=== PATIENT | female | born 1955 | race Caucasian/White ===

== ENCOUNTER 2024-08-18 11:04 | Outpatient (AMB) | payer OTHER, SELFPAY ==
--- NOTE | 2024-08-18 11:11 | MHC.PC.OV ---
Vital Signs 08/18/24 11:12 Height 5 ft 3 in Weight 233 lb BMI 41.3 BP 112/86 Blood Pressure Location Lt brachial Position Sitting Respiration 12 Pulse 91 Pulse Source Pulse Oximeter Pulse Oximetry (%) 92 Oxygen Delivery Method Room Air Intake Visit Reasons: pratik from [facility]/fatigue/difficult issues Intake Note: Patient is here to transfer care from [facility] [place] to [facility] [place] [facility]. Patient states she has concerns but she will speak to her doctor. 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 Accompanied by: Self / Same As Patient Allergies lisinopril Allergy (Severe, Verified 08/18/24 11:28) Cough sacubitril [From Entresto] Allergy (Severe, Verified 08/18/24 11:28) Cough Sulfa (Sulfonamide Antibiotics) Allergy (Severe, Verified 08/18/24 11:28) Hives valsartan [From Entresto] Allergy (Severe, Verified 08/18/24 11:28) Cough Tobacco use date assessed: 08/18/24 Fall risk assessment: 2 + Falls in past year Last assessed Fall Risk: 08/18/24 Dental Screening Dental Screen Date: 08/18/24 Did you have a dental visit in the last 12 months?: Yes Did you have a dental problem in the last 6 months where you did not have access to dental care?: Yes Was dental information given to patient?: Patient has dentist HPI HPI Comments History of Present Illness Details The patient is a 68 year old female with apast medical history of hypertension, hypertension, CAD s/p CABG, TORSTEN x 2,HFpEF35%, CVA, DM, JANUSZ presenting for follow up CV: Follows with [facility] heart failure clinic, cardiology. Has had chronic fatigue following CABG. Had late sternal wound infection. Follow up echo 40-50% and prolonged antibiotics. On entresto. Tells me she recently was admitted for an infection of her neck/face. Feels that recently her left neck/face has felt more swollen. says one of her medications was decreased. Depression & Anxiety: Followed with [facility] in the past. then saw IBH at [facility]. Tells me meds got changed in the past few months IDDM: On basaglar 40u daily, humalog 10u TID. Urologic: Has incontinence. Stress like coughing, standing but also without doing these things. She has urgency at time. She has had a few episodes of stool incontinence in the psast. She was referred to urogynecology last year-missed the appointment. Tried oxybutynin but was not effective ROS see HPI PHYSICAL EXAM: GENERAL: Alert and oriented x 3. NAD EYES: EOMI. Anicteric. HENT: Moist mucous membranes. Bilateral submandibular fullness, no redness or warmth appreciated LUNGS: Clear to auscultation bilaterally. CARDIOVASCULAR: Regular rate and rhythm. No murmur. No JVD. ABDOMEN: Soft, non-tender +bs EXTREMITIES: No edema. Non-tender. SKIN: No rashes or lesions. Warm. NEUROLOGIC: No focal neurological deficits. CN II-XII grossly intact PSYCHIATRIC: Cooperative. Appropriate mood and affect [facility] Medical History (Updated 08/21/24 @ 06:29 by Theresa Shaw MD) Dyslipidemia Numbness and tingling of both feet Right hand paresthesia Dyspnea on exertion Elevated alkaline phosphatase level Elevated LFTs Claudication Ischemic cardiomyopathy History of mammogram Neuropathy Hand pain Multiple falls History of heart attack Depression Chronic kidney disease (CKD) stage G3a/A1, moderately decreased glomerular filtration rate (GFR) between 45-59 mL/min/1.73 square meter and albuminuria creatinine ratio less than 30 mg/g Chronic anemia CAD (coronary artery disease) Ataxia Asthma Chronic heart failure with preserved ejection fraction Abnormal brain MRI Hyperlipemia Hypertension Hypothyroid Chronic fatigue Type 2 diabetes mellitus Surgical History (Updated 08/18/24 @ 12:50 by Liudmila Brito [facility]) Hx of tonsillectomy History of lumpectomy of right breast History of open heart surgery Family History (Updated 08/18/24 @ 12:16 by Liudmila Brito CMA) Mother Diabetes Heart disease Father Diabetes Heart disease Social History (Updated 08/18/24 @ 12:51 by Liudmila Brito [facility]) Household Members: None Housing: Apartment Are you a primary lpn care manager to a significant other at home: No Do you presently have visiting nurse or other home services: No Alcohol intake: current Alcohol intake frequency: holidays/special occasions only Patient Tobacco Use Status: Former Tobacco user e-Cigarette/Vaping Use: Never Used Other Past Substance Use Problem:: Past use of cocaine, hallucinogens/LSD, Marijuana. Stopped at age 47. service: No Current occupational status: other Current occupation: [employer] Cognitive needs: Yes Hearing needs: Yes Vision needs: Yes Questionnaire PHQ-9 Over the last 2 weeks, how often have you been bothered by any of the following problems? 1. Little interest or pleasure in doing things: several days 2. Feeling down, depressed, or hopeless: several days 3. Trouble falling or staying asleep, or sleeping too much: several days 4. Feeling tired or having little energy: nearly every day 5. Poor appetite or overeating: nearly every day 6. Feeling bad about yourself - or that you are a failure or have let yourself or your family down: several days 7. Trouble concentrating on things, such as reading the newspaper or watching television: not at all 8. Moving or speaking so slowly that other people could have noticed. Or the opposite - being so fidgety or restless that you have been moving around a lot more than usual: not at all 9. Thoughts that you would be better off or of hurting yourself in some way: not at all Total score: 10 Depression Screening Interpretation: Positive Depression Screening Follow-up: Existing condition Depression Screening Done: Yes 65000 - PHQ-9 Billing: Yes Source: Developed by Drs. Blair Mcknight, Amarilis Stratton, Gelacio Zimmerman and colleagues, with an educational trace from [employer]. Thrive Questionnaire Date Thrive assessed: 08/18/24 I am a: Patient What is your living situation today?: I have a steady place to live Within the past 12 months, did the food you bought not last and you didn't have the money to get more?: Sometimes True Within the past 12 months, did you worry whether your food would run out before you got money to buy more?: Sometimes True Do you have trouble paying for medicines?: No Do you have trouble getting transportation to medical appointments?: No Do you have trouble paying your heating and electricity bill?: Yes Do you have trouble taking care of your child, family member or friend?: No Do you have trouble with day-to-day activities such as bathing, preparing meals, shopping, managing finances, etc.?: Yes Are you currently unemployed and looking for a job?: I choose not to answer this question Are you interested in more education?: No Please select the resources that you would like help with: Food, Transportation and Utilities Currently or been in a relationship where the following occur: No concerns reported THRIVE Score: 3 AUDIT C Alcohol Use Questionnaire (AUDIT-C) 1. How often do you have a drink containing alcohol?: Monthly or less 2. How many drinks containing alcohol do you have on a typical day when you are drinking?: 1 or 2 3. How often do you have six or more drinks on one occasion?: Never Total Score: 1 CALISTA-7 AMB Questionnaire CALISTA-7 Date CALISTA - 7 assessed: 08/18/24 Feeling nervous, anxious, or on edge: 2 = More than half the days Not being able to stop or control worryin = More than half the days Worrying too much about different things: 1 = Several days Trouble relaxin = Several days Being so restless that it is hard to sit still: 0 = Not at all Becoming easily annoyed or irritable: 1 = Several days Feeling afraid as if something awful might happen: 0 = Not at all Total CALISTA-7 score (0-4 normal; 5-9 mild; 10-14 moderate; 15-21 severe): 7 Source: Developed by Drs. Blair Mcknight, Amarilis Stratton, Gelacio Zimmerman and colleagues, with an educational trace from [employer]. CALISTA-7 Assessment Billing CALISTA-7 Assessment Tool: CALISTA-7 Assessment 80974 Physical exam (Primary Care) Vital Signs: Last Vital Signs Pulse 91 08/18/24 11:12 Resp 12 08/18/24 11:12 BP 112/86 08/18/24 11:12 Pulse Ox 92 08/18/24 11:12 Oxygen Delivery Method Room Air 08/18/24 11:12 BMI result Body Mass Index 41.3 Tobacco/Smoking Status: Tobacco use Status Tobacco use date assessed 08/18/24 08/18/24 12:13 Patient Tobacco Use Status Former Tobacco user 08/18/24 12:14 e-Cigarette/Vaping Use Never Used 08/18/24 12:14 PHQ-9: PHQ-9 Score PHQ-9: Total score 10 08/21/24 06:28 Depression Screening Interpretation: Positive Depression Screening Follow-up: Existing condition Thrive Assessment: Date of Thrive Assessment Date Thrive assessed 08/18/24 08/18/24 12:13 Currently or been in a relationship where the following occur: No concerns reported Assessment and Plan Assessment & Plan (1) Chronic fatigue: Code(s): R53.82 - Chronic fatigue, unspecified Plan: Ongoing multifactorial. Monitor labs. She is applying for disability (2) Hypothyroid: Code(s): E03.9 - Hypothyroidism, unspecified Qualifiers: Hypothyroidism type: unspecified Qualified Code(s): E03.9 - Hypothyroidism, unspecified Plan: Has been biochemically euthyroid (3) Diabetes: Code(s): E11.9 - Type 2 diabetes mellitus without complications Qualifiers: Diabetes mellitus complication detail: with polyneuropathy Diabetes mellitus complication status: with neurologic complications Diabetes mellitus snf insulin use: with snf use Diabetes mellitus type: type 2 Qualified Code(s): E11.42 - Type 2 diabetes mellitus with diabetic polyneuropathy; Z79.4 - residential (current) use of insulin (4) Ischemic cardiomyopathy: Code(s): I25.5 - Ischemic cardiomyopathy Plan: Continue follow up with cardiology, heart failure clinic Orders: Orders TSH reflex Free T4 08/18/24 E03.9 - Hypothyroidism, unspecified, E11.9 - Type 2 diabetes mellitus without complications Hemoglobin A1c 08/18/24 E03.9 - Hypothyroidism, unspecified, E11.9 - Type 2 diabetes mellitus without complications Complete Blood Count Auto Diff 08/18/24 L02.91 - Cutaneous abscess, unspecified Comprehensive Met. Panel 08/18/24 L02.91 - Cutaneous abscess, unspecified Referrals Psychology Referral E03.9 - Hypothyroidism, unspecified, E11.9 - Type 2 diabetes mellitus without complications, R53.82 - Chronic fatigue, unspecified Coding Level of Care Code Est Pt Level 5 (10346) Diagnoses Chronic fatigue R53.82 Hypothyroidism, unspecified type E03.9 Hypothyroidism type: unspecified Type 2 diabetes mellitus with diabetic polyneuropathy, with long-term current use of insulin E11.42; Z79.4 Diabetes mellitus complication detail: with polyneuropathy Diabetes mellitus complication status: with neurologic complications Diabetes mellitus snf insulin use: with snf use Diabetes mellitus type: type 2 Ischemic cardiomyopathy I25.5 Additional Codes CALISTA-7 Assessment Billing - CALISTA-7 Assessment Tool: CALISTA-7 Assessment 25206 ([id number]) Time Spent (min) 50
[2024-08-18 11:12] VITALS: BP 112/86; PULSE 91; RESP 12; O2SAT 92; BMI 41.3
== END 2024-08-18 12:29 | disposition home or self-care (01) ==
PROVIDERS: PCP Internal Medicine; Visit Provider Internal Medicine
DX: R53.82 Chronic fatigue, unspecified (principal); E03.9 Hypothyroidism, unspecified; E11.42 Type 2 diabetes mellitus with diabetic polyneuropathy; Z79.4 Long term (current) use of insulin; I25.5 Ischemic cardiomyopathy

== ENCOUNTER → 2024-08-18 11:04 | Outpatient (BNVA) | payer OTHER, SELFPAY | PROVIDERS: PCP Internal Medicine; Visit Provider Internal Medicine | DX: R53.82 Chronic fatigue, unspecified (principal); E03.9 Hypothyroidism, unspecified; E11.42 Type 2 diabetes mellitus with diabetic polyneuropathy; I25.5 Ischemic cardiomyopathy; Z79.4 Long term (current) use of insulin | CPT/HCPCS: 96127 ==

== ENCOUNTER 2024-08-18 12:33 | Outpatient (REF) | payer OTHER, SELFPAY ==
[2024-08-18 14:15] LABS: MANUAL DIFF FLAG NO
[2024-08-18 14:18] LABS: Basophils Absolute Auto 0.1 X10*3/uL (0.0-0.2); Basophils Percent Auto 0.5 % (0-2); Eosinophils Absolute Auto 0.1 X10*3/uL (0.0-0.4); Eosinophils Percent Auto 0.8 % (0-4); Hematocrit 41.4 % (37.0-47.0); Hemoglobin 13.5 g/dl (12.0-16.0); Imm Gran Abs Auto 0.04 X10*3/uL (0.00-0.03); Imm Gran Pct Auto 0.3 % (0.0-0.4); Lymphocytes Absolute Auto 2.4 X10*3/uL (1.2-4.9); Lymphocytes Percent Auto 19.4 % (20-40); Mean Corpuscular HGB Conc 32.6 g/dl (31.0-35.0); Mean Corpuscular Hemoglobin 28.5 pg (27.0-33.0); Mean Corpuscular Volume 87.3 fL (80.0-98.0); Mean Platelet Volume 11.6 fL (9.4-12.3); Monocytes Absolute Auto 0.6 X10*3/uL (0.1-1.2); Monocytes Percent Auto 4.4 % (2-11); Neutrophils Absolute Auto 9.3 x10*3/uL (2.0-8.3); Neutrophils Percent Auto 74.6 % (45-73); Platelet Count 282 X10*3/uL (160-400); Red Blood Count 4.74 X10*6/uL (4.20-5.50); Red Cell Distribution Width 15.6 % (11.0-16.0); White Blood Count 12.5 X10*3/uL (4.8-10.8)
[2024-08-18 14:49] LABS: Estimated Average Glucose 212 mg/dL
[2024-08-18 15:41] LABS: Alanine Aminotransferase 11 U/L (0-31); Albumin Level 3.9 g/dL (3.5-5.0); Alkaline Phosphatase 127 U/L (39-117); Anion Gap 15 (12-20); Aspartate Amino Transferase 11 U/L (5-31); Bilirubin Total 0.5 mg/dL (0.0-1.0); Blood Urea Nitrogen 20 mg/dL (9-16); Calcium 9.3 mg/dL (8.4-10.2); Carbon Dioxide 23 mmol/L (22-29); Chloride 104 mmol/L (96-108); Estimated Glomerular Filt Rate 44; Glucose Random 200 mg/dL (60-115); Potassium 4.2 mmol/L (3.3-5.1); Sodium 138 mmol/L (135-145); Total Protein 7.8 g/dL (6.5-8.0)
[2024-08-18 15:56] LABS: TSH reflex Free T4 1.52 uIU/mL (0.32-4.0)
== END 2024-08-18 12:34 | disposition home or self-care (01) ==
LOC: HO.WFDLDS 12:33
PROVIDERS: Visit Provider Internal Medicine
DX: L02.91 Cutaneous abscess, unspecified (principal); E11.9 Type 2 diabetes mellitus without complications; E03.9 Hypothyroidism, unspecified
CPT/HCPCS: 36415; 80053; 83036; 84443; 85025

== ENCOUNTER 2024-11-10 15:22 | Outpatient (AMB) | payer OTHER, SELFPAY ==
--- NOTE | 2024-11-10 15:40 | AM.OFFVISNUR ---
Intake Visit Reasons: Flu Shot Allergies lisinopril Allergy (Severe, Verified 08/18/24 11:28) Cough sacubitril [From Entresto] Allergy (Severe, Verified 08/18/24 11:28) Cough Sulfa (Sulfonamide Antibiotics) Allergy (Severe, Verified 08/18/24 11:28) Hives valsartan [From Entresto] Allergy (Severe, Verified 08/18/24 11:28) Cough Office Procedures Flu Questionnaire Does the patient have a severe egg allergy?: No Does the patient have severe life threatening allergies?: No Does the patient have a fever or illness today?: No Has the patient ever had Guillain-[place] Syndrome?: No Has the patient ever had any past reaction to a flu shot?: No Immunizations Fluarix Triv [id number] (PF) 45 mcg (15 mcg x 3)/0.5 mL IM syringe Performing Provider: Theresa Shaw MD Performing Location: [facility] Administered by: Alexa Contreras RN on 11/10/24 15:40 Dose Route Admin Location Dispensed Lot Number Expiration Date NDC Drum Reel Cutter 0.5 mL IM Left Deltoid 0.5 mL [id number] 05/21/25 [id number] [employer] VIS Given Date VIS Provided VIS Publication Date 11/10/24 Single Vaccine 21 Eligibility Eligibility Date Funding Source Not [facility] Eligible 11/10/24 Private Assessment & Plan Assessment & Plan Orders: Orders Influenza [id number] Immunization Today Z23 - Encounter for immunization Medications: New Fluarix Triv [id number] (PF) (flu vacc [id number] 6mos up(PF)) 0.5 mL IM ONCE 0.5 mL 0RF NS Z23 - Encounter for immunization
== END 2024-11-10 15:36 | disposition home or self-care (01) ==
PROVIDERS: PCP Internal Medicine; Visit Provider Internal Medicine
DX: Z23 Encounter for immunization (principal)

== ENCOUNTER 2024-11-10 15:22 | Outpatient (AMB) | payer OTHER, SELFPAY ==
--- NOTE | 2024-11-10 15:42 | A.OFFPC_ITS ---
Vital Signs 11/10/24 15:43 11/10/24 15:57 Height 5 ft 3 in BP 148/76 H 110/78 Blood Pressure Location Rt brachial Rt brachial Position Sitting Sitting Pulse 94 Pulse Source Pulse Oximeter Pulse Oximetry (%) 96 Oxygen Delivery Method Room Air Intake Visit Reasons: wrist and hand injury Intake Note: Left wrist pain. Ultrasound Technol Required: No Allergies lisinopril Allergy (Severe, Verified 11/10/24 15:42) Cough sacubitril [From Entresto] Allergy (Severe, Verified 11/10/24 15:42) Cough Sulfa (Sulfonamide Antibiotics) Allergy (Severe, Verified 11/10/24 15:42) Hives valsartan [From Entresto] Allergy (Severe, Verified 11/10/24 15:42) Cough Tobacco use date assessed: 08/18/24 Dental Screening Dental Screen Date: 08/18/24 HPI HPI Comments History of Present Illness Details The patient is a 68 year old female with apast medical history of hypertension, hypertension, CAD s/p CABG, TORSTEN x 2,HFpEF35%, CVA, DM, JANUSZ presenting for follow up Started have left wrist pain 2 weeks ago. She vaguely remembers slamming her left hand against the wall in the middle of the night. She has some swelling in the wrist and MCP joints. Has been wrapping it but no real interval improvement. Using tylenol without much effect. CV: Follows with [facility] heart failure clinic, cardiology. Has had chronic fatigue following CABG. Had late sternal wound infection. Follow up echo 40-50% and prolonged antibiotics. On entresto. Tells me she recently was admitted for an infection of her neck/face. Feels that recently her left neck/face has felt more swollen. says one of her medications was decreased. Depression & Anxiety: Followed with [facility] in the past. then saw IBH at [facility]. Tells me meds got changed in the past few months IDDM: On Lantus 40u daily, humalog 10u TID. Uncontrolled. Worried about recent hair loss. Interested in endocrinology referral for alternate insulin delivery system Urologic: Has incontinence. Stress like coughing, standing but also without doing these things. She has urgency at time. She has had a few episodes of stool incontinence in the psast. She was referred to urogynecology last year-missed the appointment. Tried oxybutynin but was not effective ROS see HPI PHYSICAL EXAM: GENERAL: Alert and oriented x 3. NAD EYES: EOMI. Anicteric. HENT: Moist mucous membranes. Bilateral submandibular fullness, no redness or warmth appreciated LUNGS: Clear to auscultation bilaterally. CARDIOVASCULAR: Regular rate and rhythm. No murmur. No JVD. ABDOMEN: Soft, non-tender +bs EXTREMITIES: No edema. Left MCP and wrist swelling, mild redness SKIN: No rashes or lesions. Warm. NEUROLOGIC: No focal neurological deficits. CN II-XII grossly intact PSYCHIATRIC: Cooperative. Appropriate mood and affect [facility] Medical History (Updated 11/10/24 @ 21:56 by Theresa Shaw MD) Dyslipidemia Numbness and tingling of both feet Right hand paresthesia Dyspnea on exertion Elevated alkaline phosphatase level Elevated LFTs Claudication Ischemic cardiomyopathy History of mammogram Neuropathy Hand pain Multiple falls History of heart attack Depression Chronic kidney disease (CKD) stage G3a/A1, moderately decreased glomerular filtration rate (GFR) between 45-59 mL/min/1.73 square meter and albuminuria creatinine ratio less than 30 mg/g Chronic anemia CAD (coronary artery disease) Ataxia Asthma Chronic heart failure with preserved ejection fraction Abnormal brain MRI Hyperlipemia Hypertension Hypothyroid Chronic fatigue Type 2 diabetes mellitus Surgical History Hx of tonsillectomy History of lumpectomy of right breast History of open heart surgery Family History Mother Diabetes Heart disease Father Diabetes Heart disease Social History (Updated 11/10/24 @ 15:47 by Brittany Johnson CMA) Household Members: None Housing: Apartment Are you a primary medicare sales representative to a significant other at home: No Do you presently have visiting nurse or other home services: No 75 years or older and lives alone: No Alcohol intake: current Alcohol intake frequency: holidays/special occasions only Patient Tobacco Use Status: Former Tobacco user e-Cigarette/Vaping Use: Never Used service: No Current occupational status: other Current occupation: [employer] Cognitive needs: Yes Hearing needs: Yes Vision needs: Yes Questionnaire Thrive Questionnaire Date Thrive assessed: 08/18/24 I am a: Patient What is your living situation today?: I have a steady place to live Within the past 12 months, did the food you bought not last and you didn't have the money to get more?: Sometimes True Within the past 12 months, did you worry whether your food would run out before you got money to buy more?: Sometimes True Do you have trouble paying for medicines?: No Do you have trouble getting transportation to medical appointments?: No Do you have trouble paying your heating and electricity bill?: Yes Do you have trouble taking care of your child, family member or friend?: No Do you have trouble with day-to-day activities such as bathing, preparing meals, shopping, managing finances, etc.?: Yes Are you currently unemployed and looking for a job?: I choose not to answer this question Are you interested in more education?: No Currently or been in a relationship where the following occur: No concerns reported THRIVE Score: 3 CALISTA-7 AMB Questionnaire CALISTA-7 Date CALISTA - 7 assessed: 08/18/24 Source: Developed by Drs. Blair Mcknight, Amarilis Stratton, Gelacio Zimmerman and colleagues, with an educational trace from [employer]. Physical exam (Primary Care) Vital Signs: Last Vital Signs Pulse 94 11/10/24 15:43 BP 110/78 11/10/24 15:57 Pulse Ox 96 11/10/24 15:43 Oxygen Delivery Method Room Air 11/10/24 15:43 Tobacco/Smoking Status: Tobacco use Status Tobacco use date assessed 08/18/24 11/10/24 15:49 Patient Tobacco Use Status Former Tobacco user 11/10/24 15:49 e-Cigarette/Vaping Use Never Used 11/10/24 15:49 Thrive Assessment: Date of Thrive Assessment Date Thrive assessed 08/18/24 11/10/24 15:49 Currently or been in a relationship where the following occur: No concerns reported Coding Level of Care Code Est Pt Level 4 (00637) Diagnoses Injury of left wrist, initial encounter S69.92XA Encounter type: initial encounter Laterality: left Type 2 diabetes mellitus with hyperglycemia, with long-term current use of insulin E11.65; Z79.4 Diabetes mellitus complication status: with hyperglycemia Diabetes mellitus longterm insulin use: with longterm use Assessment & Plan Assessment & Plan (1) Wrist injury: Code(s): S69.90XA - Unspecified injury of unspecified wrist, hand and finger(s), initial encounter Category: Medical Qualifiers: Encounter type: initial encounter Laterality: left Qualified Code(s): S69.92XA - Unspecified injury of left wrist, hand and finger(s), initial encounter Plan: referral placed to orthopedics for evaluation. (2) Type 2 diabetes mellitus: Code(s): E11.9 - Type 2 diabetes mellitus without complications Category: Medical Qualifiers: Diabetes mellitus complication status: with hyperglycemia Diabetes mellitus supervisor intermediates insulin use: with supervisor intermediates use Qualified Code(s): E11.65 - Type 2 diabetes mellitus with hyperglycemia; Z79.4 - intermediate card tender (current) use of insulin Plan: Uncontrolled. She is interested in insulin devliery system Orders: Referrals Orthopedics Referral S69.90XA - Unspecified injury of unspecified wrist, hand and finger(s), initial encounter Endocrinology Referral E11.9 - Type 2 diabetes mellitus without complications, Z79.4 - FPC (current) use of insulin Medications: New oxycodone Partial Fill upon patient request. 5 mg PO Q8H PRN 56 tabs 0RF pain 28 days prednisone 40 mg (2 x 20 mg) PO DAILY 10 tabs 0RF
[2024-11-10 15:43] VITALS: BP 148/76; PULSE 94; O2SAT 96
[2024-11-10 15:57] VITALS: BP 110/78
== END 2024-11-10 16:50 | disposition home or self-care (01) ==
PROVIDERS: PCP Internal Medicine; Visit Provider Internal Medicine
DX: S69.92XA Unspecified injury of left wrist, hand and finger(s), initial encounter (principal); E11.65 Type 2 diabetes mellitus with hyperglycemia; Z79.4 Long term (current) use of insulin

== ENCOUNTER → 2024-11-10 15:22 | Outpatient (BNVA) | payer OTHER, SELFPAY | PROVIDERS: PCP Internal Medicine; Visit Provider Internal Medicine | DX: S69.92XA Unspecified injury of left wrist, hand and finger(s), initial encounter (principal); Z23 Encounter for immunization; E11.65 Type 2 diabetes mellitus with hyperglycemia; I10 Essential (primary) hypertension; W22.09XA Striking against other stationary object, initial encounter; Y93.9 Activity, unspecified; Y92.009 Unspecified place in unspecified non-institutional (private) residence as the place of occurrence of the external cause; Y99.9 Unspecified external cause status; Z79.4 Long term (current) use of insulin | CPT/HCPCS: 90471; 90656 ==